=== PATIENT | female | born 1980 | race Hispanic/Latino ===

== ENCOUNTER → 2017-04-08 | Outpatient (CLI) | payer BC ==
--- NOTE | 2017-04-08 15:56 | Diagnostic Imaging Report ---
#[id number] - MGDXBIL #BILATERAL FIRST EVER DIGITAL DIAGNOSTIC MAMMOGRAM WITH CAD: 04/08/2017 No prior exams were available for comparison. Current study contains 6 films. The tissue of both breasts is extremely dense, which lowers the sensitivity of mammography. Current study was also evaluated with a Computer Aided Detection (CAD) system. No significant masses, calcifications, or other findings are seen in either breast. As the patient's provider was palpating something in the lower aspect of the right breast, a focused right breast ultrasound will be performed today. IMPRESSION: BENIGN There is no mammographic evidence of malignancy. A 2 year screening mammogram is recommended. The patient will be notified by letter of the results. Guy Phillip Jr., D.O. cw/:04/08/2017 14:11:57 [place] Machine Operator: Faith ORTIZ(R)(M), [facility] letter sent: Normal Exam Mammogram BI-RADS: 2 Benign
--- NOTE | 2017-04-08 15:56 | Diagnostic Imaging Report ---
#[id number] - USBRELIMRT ULTRASOUND OF THE RIGHT BREAST : 04/08/2017 Comparison is made to exam dated: 04/08/2017 mammogram - [facility]. Color flow and real-time ultrasound were performed on the right breast in the lower 1/2 with scanning from 3 o'clock to 9 o'clock. There is no cystic or solid mass identified. IMPRESSION: NEGATIVE There is no sonographic evidence of malignancy. A 2 year screening mammogram is recommended. Guy Phillip Jr., D.O. cw/:04/08/2017 14:15:08 Bradder: OLIVIA ORTIZ, [facility] letter sent: Normal Exam Ultrasound BI-RADS: 1 Negative
== END ==
LOC: MAMMO 12:23
PROVIDERS: ATTEND Internal Medicine
DX: N63.10 Unspecified lump in the right breast, unspecified quadrant (principal)
CPT/HCPCS: 76642; G0204

== ENCOUNTER → 2018-10-18 | Outpatient (CLI) | payer BC ==
--- NOTE | 2018-10-18 14:13 | Diagnostic Imaging Report ---
Exam: Head CT without contrast History: Migraine headache, carotid artery syndrome. Comparison studies: None Technique: Axial images were obtained from the skull base to the vertex. Coronal and sagittal images reconstructed from the axial data. Dose modulation, iterative reconstruction, and/or weight based adjustment of the mA/kV was utilized to reduce the radiation dose to as low as reasonably achievable. Radiation dose: Total DLP: 921 mGy*cm. Estimated effective dose: DLP x 0.015 Intravenous contrast: None Findings: Scalp: Small focal scarring in the posterior right frontal scalp. Bones: No fractures, blastic or lytic lesions. Brain sulci: Appropriate for age. Ventricles: Mild asymmetry of the temporal horns of the lateral ventricles with the right being slightly larger than the left. This finding may be an incidental finding of no clinical significance. Moreover, a similar finding can occasionally be seen as an indirect sign of mesial temporal sclerosis in patients with history of seizures. If there is a history of seizures, further evaluation with brain MRI utilizing seizure/epilepsy protocol could further evaluate. Extra-axial spaces: Incidental nonaggressive 4 mm dural ossification or exostosis along the inner table at the anterior left frontal convexity without mass effect. No fluid collection. Parenchyma: No abnormal densities. No masses, acute hemorrhage, acute or chronic vascular insults. Sellar/suprasellar region: No abnormalities. Craniocervical junction: Patent foramen magnum. No Chiari one malformation. IMPRESSION: 1. Incidental nonspecific mild asymmetry of the temporal horns of the lateral ventricles, possibly an anatomical variant of no clinical significance, especially in the absence of a history of seizures as described. 2. Otherwise, no significant intracranial abnormalities. Signed by: Dr. Rj Urban M.D. on 10/18/2018 2:10 PM
== END ==
LOC: CT 13:03
PROVIDERS: ATTEND Internal Medicine
DX: G45.1 Carotid artery syndrome (hemispheric) (principal)
CPT/HCPCS: 70450

== ENCOUNTER → 2019-04-11 | Outpatient (CLI) | payer BC ==
--- NOTE | 2019-04-11 12:55 | Diagnostic Imaging Report ---
Pelvic ultrasound. History: There are September Comparison: . None available. Discussion: Transabdominal and transvaginal evaluation of the pelvis was performed in the transverse and longitudinal planes. The uterus is normal in size measuring 8.8 x 5.1 x 5.8 cm. The endometrial stripe is within normal limits at 11 mm. Nabothian cysts are noted within the cervix. The right ovary measures 3.1 x 3.5 x 2.9 cm. The left ovary measures 4.1 x 3.6 x 4.2 cm. A follicle is noted on the right. A simple 3.5 cm cyst is present on the left, almost certainly benign, no follow-up imaging recommended. There is no evidence of an adnexal mass. There is no evidence of free fluid. IMPRESSION: Normal pelvic ultrasound. Signed by: Rob Mckinnon on 04/11/2019 12:52 PM
--- NOTE | 2019-04-12 10:19 | Diagnostic Imaging Report ---
#[id number] - MGDXBIL #BILATERAL DIGITAL DIAGNOSTIC MAMMOGRAM WITH CAD: 04/11/2019 Comparison is made to exams dated: 04/08/2017 mammogram and 04/08/2017 ultrasound - [facility]. Current study contains 6 films. The tissue of both breasts is heterogeneously dense. This may lower the sensitivity of mammography. Current study was also evaluated with a Computer Aided Detection (CAD) system. No significant masses, calcifications, or other findings are seen in either breast. IMPRESSION: NEGATIVE See the report for ultrasound performed the same day for additional details. There is no mammographic evidence of malignancy. A 1 year screening mammogram is recommended. The patient will be notified by letter of the results. DAVID AMBROSE M.D. ct/penrad:04/11/2019 11:29:40 Public Relations Consultant: Faith DUPREE)(M), [facility] letter sent: Normal Exam Mammogram BI-RADS: 1 Negative
--- NOTE | 2019-04-12 10:19 | Diagnostic Imaging Report ---
#[id number] - USBRELIMRT ULTRASOUND OF THE RIGHT BREAST : 04/11/2019 Comparison is made to exams dated: 04/11/2019 mammogram, 04/08/2017 ultrasound and 04/08/2017 mammogram - [facility]. Real-time ultrasound was performed on the right breast. Directed ultrasound exam of the right breast was performed from 3 to 9 o'clock to evaluate the patients palplable abnormality. There are no solid or cystic masses identified. IMPRESSION: BENIGN There is no sonographic evidence of malignancy. A 1 year screening mammogram is recommended. DAVID AMBROSE M.D. ct/penrad:04/11/2019 11:30:57 Burner Tender: CIARAN SLOAN RDND, [facility] letter sent: Normal Exam Ultrasound BI-RADS: 2 Benign
== END ==
LOC: MAMMO 08:55
PROVIDERS: ATTEND Obstetrics & Gynecology Obstetrics
DX: N63.10 Unspecified lump in the right breast, unspecified quadrant (principal); N92.0 Excessive and frequent menstruation with regular cycle; Z11.51 Encounter for screening for human papillomavirus (HPV)
CPT/HCPCS: 76830; 76856; 77066

== ENCOUNTER → 2020-05-22 | Outpatient (CLI) | payer BC | LOC: MAMMO 08:53 | PROVIDERS: ATTEND Obstetrics & Gynecology Obstetrics | DX: Z12.31 Encounter for screening mammogram for malignant neoplasm of breast (principal) | CPT/HCPCS: 77067 ==

== ENCOUNTER → 2020-08-28 | Outpatient (CLI) | payer BC | LOC: MAMMO 08:55 | PROVIDERS: ATTEND Obstetrics & Gynecology Obstetrics | DX: R92.2 Inconclusive mammogram (principal) | CPT/HCPCS: 77066 ==

== ENCOUNTER → 2022-03-02 | Outpatient (CLI) | payer BC | LOC: MRI 09:08 | PROVIDERS: ATTEND Internal Medicine | DX: G43.019 Migraine without aura, intractable, without status migrainosus (principal) | CPT/HCPCS: 70551 ==

== ENCOUNTER → 2023-05-10 | Outpatient (REF) | payer BC | LOC: MAMMO 08:10 | PROVIDERS: ATTEND Internal Medicine | DX: Z12.31 Encounter for screening mammogram for malignant neoplasm of breast (principal); Z13.820 Encounter for screening for osteoporosis; M19.041 Primary osteoarthritis, right hand | CPT/HCPCS: 77067; 77080 ==